=== PATIENT | female | born 1955 | race Caucasian/White ===

== ENCOUNTER 2018-01-18 11:28 | Emergency (ER) | payer OTHER ==
[2018-01-18 11:37] VITALS: TEMP 98.8
[2018-01-18 11:51] LABS: BASOPHILS % (AUTO) 1 % (0-3); EOSINOPHILS % (AUTO) 4 % (0-9); HEMATOCRIT 46 % (35-47); MEAN CORPUSCULAR HGB CONC 31.3 gm/dl (32.0-36.0); MEAN CORPUSCULAR VOLUME 96 fL (81-99); MONOCYTES % (AUTO) 13.2 % (0-12); NEUTROPHILS % (AUTO) 57.4 % (37-80)
[2018-01-18 12:08] LABS: GLOM FILT RATE 66 mL/min (>60); POTASSIUM 4.5 mMol/L (3.5-5.1); SODIUM 141 mMol/L (136-145)
[2018-01-18] MEDS ORDERED: ALBUTEROL/IPRATROPIUM 1 VIAL SOL INH ONE (12:12)
[2018-01-18] MEDS ORDERED: ALBUTEROL/IPRATROPIUM 1 VIAL SOL ONE (12:13)
[2018-01-18] MEDS ORDERED: METOPROLOL TARTRATE 5 MG/5 ML SOL IV ONE ×2 (12:16→12:24)
[2018-01-18 13:57] VITALS: BP 159/113; PULSE 117; RESP 18; O2SAT 93
[2018-01-19] MEDS ORDERED: METOPROLOL SUCCINATE 50 MG ER TAB PO SCH (09:00)
== END 2018-01-18 13:42 | disposition home or self-care (01) | DRG 192 ==
LOC: ED 11:28
DX: J44.1 Chronic obstructive pulmonary disease with (acute) exacerbation (principal)
CPT/HCPCS: 71045; 80048; 83880; 84484; 85025; 85378; 85610; 87804; 93005; 99285; J3490

== ENCOUNTER 2018-03-11 16:20 | Emergency (ER) | payer OTHER ==
[2018-03-11 16:48] VITALS: TEMP 97.9
[2018-03-11 17:04] LABS: BASOPHILS % (AUTO) 1 % (0-3); EOSINOPHILS % (AUTO) 1 % (0-9); HEMATOCRIT 43 % (35-47); HEMOGLOBIN 14.4 gm/dl (12.0-15.5); LYMPHOCYTES % (AUTO) 28.5 % (10-50); MEAN CORPUSCULAR HEMOGLOBIN 30.4 pg (27.0-32.0); MEAN CORPUSCULAR HGB CONC 33.1 gm/dl (32.0-36.0); MEAN CORPUSCULAR VOLUME 92 fL (81-99); NEUTROPHILS % (AUTO) 57.7 % (37-80)
[2018-03-11] MEDS ORDERED: VERAPAMIL HYDROCHLORIDE 120 MG PO SCH (17:15)
[2018-03-11] MEDS ORDERED: METOPROLOL TARTRATE 50 MG TAB PO SCH (17:15)
[2018-03-11 17:20] LABS: BLOOD UREA NITROGEN 15 mg/dl (7-18); CALCIUM 9.2 mg/dl (8.5-10.1); CARBON DIOXIDE 31.7 mEq/L (21-32); CHLORIDE 103 mMol/L (98-107); CREATININE 1.13 mg/dl (0.60-1.00); GLOM FILT RATE 48 mL/min (>60); GLUCOSE 95 mg/dl (74-106); SODIUM 141 mMol/L (136-145); TROP I < 0.017 ng/ml (0.000-0.056)
[2018-03-11 18:04] VITALS: BP 134/73; PULSE 90; RESP 22; O2SAT 92
[2018-03-12] MEDS ORDERED: METOPROLOL SUCCINATE 50 MG ER TAB PO SCH (09:00)
[2018-03-12] MEDS ORDERED: DILTIAZEM ER 120 MG C24 PO SCH ×2 (09:00)
== END 2018-03-11 18:18 | disposition home or self-care (01) | DRG 310 ==
LOC: ED 16:20 → SUPCPDRO 16:20 → ED 18:18
DX: I48.91 Unspecified atrial fibrillation (principal); E11.9 Type 2 diabetes mellitus without complications; R42 Dizziness and giddiness; R11.0 Nausea; R06.00 Dyspnea, unspecified
CPT/HCPCS: 80048; 84484; 85025; 93005; 99284; A9270-GY